=== PATIENT | female | born 1995 | race Caucasian/White ===

== ENCOUNTER → 2018-06-22 | Outpatient (CLI) | payer OTHER ==
[~2018-06-22] VITALS: Ht 149.9 cm; Wt 89.1 kg
[~2018-06-22] MED LIST: ASPIRIN 81M81 MG/TA2 PO; PRENATAL VITAMI1 T12 PO
[2018-06-23 01:00] VITALS: BP 137/87; PULSE 133; TEMP 98.9
[2018-06-23 01:30] VITALS: BP 133/74; PULSE 111
[2018-06-23 01:55] VITALS: BP 138/84; PULSE 113
== END ==
LOC: LDRO 23:56
DX: O36.8130 Decreased fetal movements, third trimester, not applicable or unspecified (principal); O99.213 Obesity complicating pregnancy, third trimester; O16.3 Unspecified maternal hypertension, third trimester; Z3A.36 36 weeks gestation of pregnancy

== ENCOUNTER 2018-07-05 06:46 | Inpatient (IN) | payer OTHER ==
[~2018-07-05] VITALS: Ht 149.9 cm; Wt 89.1 kg
[2018-07-05] VITALS (34 sets, daily range): BP systolic 98–169; BP diastolic 54–96; PULSE 72–120; TEMP 98.1–98.7
[2018-07-05 08:09] LABS: BASO % 0.1 % (0.0-2.0); EOS % 0.4 % (0-4.0); GRAN % 71.2 % (42.2-75.2); HEMATOCRIT 38.6 % (37.0-47.0); LYMPH # 1.7 (1.2-3.4); MEAN CELL VOLUME 87 fl (80.0-100.0); MEAN CORPUSCULAR HEMOGLOBIN 29 pg (27.0-31.0); MEAN CORPUSCULAR HGB CONC 34 g/dl (33.0-37.0); MEAN PLATELET VOLUME 12.6 fl (7.4-10.4); MONO # 0.7 (0.1-0.6); MONO % 8.1 % (1.7-9.3); PLATELET COUNT 164 K/mm3 (130-400); RED BLOOD COUNT 4.46 M/mm3 (4.10-5.30); REDCELL DISTRIBUTION WIDTH-CV 13.3 % (11.5-14.5)
[2018-07-05] MEDS ORDERED: MOTRIN 800800 MG/TAB PO (08:24)
[2018-07-05] MEDS ORDERED: PERCOCET 325 MG1 TA2 PO (08:24)
[2018-07-05 08:33] LABS: TRICYCLIC ANTIDEPRESS URINE NEGATIVE
[2018-07-06 01:15] VITALS: BP 122/78; PULSE 95; TEMP 98
[2018-07-06 08:00] VITALS: BP 125/90; PULSE 86; TEMP 97.8
[2018-07-06 15:44] VITALS: BP 136/78; PULSE 109; TEMP 97.9
[2018-07-06 19:30] VITALS: BP 127/85; PULSE 101; TEMP 98.2
[2018-07-07 10:15] VITALS: BP 135/85; PULSE 86; TEMP 97.9
== END 2018-07-07 13:31 | disposition home or self-care (01) | DRG 774 ==
LOC: OB 06:46 → LDR 06:46 → OB 15:56
PROVIDERS: Obstetrics & Gynecology
PROC: 3E033VJ Introduction of Other Hormone into Peripheral Vein, Percutaneous Approach (ICD-10-PCS; principal; 2018-07-05)
PROC: 10E0XZZ Delivery of Products of Conception, External Approach (ICD-10-PCS; 2018-07-05)
PROC: 0KQM0ZZ Repair Perineum Muscle, Open Approach (ICD-10-PCS; 2018-07-05)
DX: O10.02 Pre-existing essential hypertension complicating childbirth (principal); Z3A.37 37 weeks gestation of pregnancy; Z37.0 Single live birth; O36.5930 Maternal care for other known or suspected poor fetal growth, third trimester, not applicable or unspecified; O99.344 Other mental disorders complicating childbirth; F41.8 Other specified anxiety disorders; O99.824 Streptococcus B carrier state complicating childbirth; O77.0 Labor and delivery complicated by meconium in amniotic fluid; O70.1 Second degree perineal laceration during delivery
CPT/HCPCS: J2540; J2590; J2795; J7120